=== PATIENT | male | born 1995 | race Two or more races ===

== ENCOUNTER 2018-12-12 07:54 | Emergency (ER) | payer MEDICAID ==
[~2018-12-12] VITALS: Ht 180.3 cm; Wt 93.0 kg
[2018-12-12 09:42] VITALS: BP 120/80
== END 2018-12-12 09:53 | disposition home or self-care (01) ==
LOC: ER 07:54
DX: S01.312A Laceration without foreign body of left ear, initial encounter (principal); F12.10 Cannabis abuse, uncomplicated; X58.XXXA Exposure to other specified factors, initial encounter; Y93.89 Activity, other specified; Y92.89 Other specified places as the place of occurrence of the external cause; Y99.8 Other external cause status
CPT/HCPCS: 99283